=== PATIENT | male | born 1940 | race Caucasian/White ===

== ENCOUNTER → 2018-09-13 09:41 | Outpatient (CLI) | payer MEDICARE, OTHER ==
--- NOTE | 2018-09-18 09:55 | EC ---
PATIENT:TRI DONIS DATE OF SERVICE: 09/13/18 SEX: M MEDICAL RECORD: [id number] DATE OF : 38 LOCATION:[facility] AGE OF PATIENT: 77 ADMISSION DATE: 09/13/18 REFERRING PHYSICIAN: INTERPRETING PHYSICIAN: SANAZ OLMSTEAD MD ECHOCARDIOGRAM REPORT ECHO CHARGES 4 ECHO COMPLETE Date: 09/13/18 CLINICAL DIAGNOSIS: HTN, ASSESS EF AND VAVLES., HX OF CAD/CHRONIC AFIB ECHOCARDIOGRAPHIC MEASUREMENTS (adult normal given) AC root (d.<3.7cm) 3.7 cm LV Septum d (<1.2 cm> 1.3 cm Valve Excursion 1.4 cm LV Septum (systole) 1.5 cm Left Atria (s.<4.0cm> 4.8 cm LVPW d(<1.2cm) 1.4 cm RV (d.<2.3cm) 3.8 cm LVPW (sytole) 1.9 cm LV diastole(<5.6CM) 5.0 cm MV E-F(>70mm/sec) cm LV systole 3.0 cm LVOT Diameter 1.7 cm MV exc.(>10mm) cm Est.ejection fraction (50-75%) % DOPPLER: LVIT cm/sec A 37.0 cm/sec E 116 cm/sec LA cm/sec RVSP 33 mmHg LVOT 95 cm/sec AOP1/2T m/s Asc. 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 Gilbert TAPE# PACS Pericardial Effusion N DATE OF SERVICE: Adequate 2D, color flow, spectral Doppler, and M-Mode. LVH is present. LV internal dimensions are normal. Wall motion is normal. EF is greater than or equal to 55%. Aortic valve sclerosis without stenosis by Doppler interrogation. Left atrium dilated at 4.8 cm. Mitral valve shows no prolapse. Mild MR. Right-sided chambers grossly normal. Mild TR. 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 [address] [place] [id number]
== END | disposition home or self-care (01) ==
LOC: D.HCCARDIO 09:41
PROVIDERS: ATTEND Internal Medicine Interventional Cardiology
DX: I10 Essential (primary) hypertension (principal)